=== PATIENT | female | born 1965 | race Hispanic/Latino ===

== ENCOUNTER 2021-09-03 13:42 | Inpatient (IN) | payer BC, OTHER ==
[2021-09-03] VITALS (10 sets, daily range): BP systolic 88–125; BP diastolic 57–82
[~2021-09-03] VITALS: Ht 165.1 cm; Wt 100.2 kg
[~2021-09-03 13:42] MED LIST: LISI5TAB21 PO; METF-446 PO
[2021-09-03 14:17] LABS: BASOPHILS % (AUTO) 0.3 % (0.0-5.0); EOSINOPHILS % (AUTO) 0.6 % (0.0-8.0); HEMATOCRIT 33.9 % (36-48); LYMPHOCYTES % (AUTO) 12.5 % (21.0-51.0); MEAN CORPUSCULAR HEMOGLOBIN 29.7 pg (27.0-33.0); MEAN CORPUSCULAR HGB CONC 33.6 g/dL (32.0-36.0); MEAN CORPUSCULAR VOLUME 88.3 fL (79-99); PLATELET COUNT (AUTO) 287 K/uL (130-400); RED BLOOD CELL COUNT(AUTO) 3.84 MIL/uL (4.00-5.50); RED CELL DISTRIBUTION WIDTH 13.2 % (11.0-15.5); WHITE BLOOD COUNT (AUTO) 15.8 K/uL (4.8-10.8)
[2021-09-03 14:24] LABS: APPEARANCE,URINE TURBID (CLEAR); BILIRUBIN,URINE NEGATIVE (NEGATIVE); COLOR,URINE YELLOW (YELLOW); GLUCOSE, URINE (UA) NEGATIVE (NEGATIVE); KETONES,URINE NEGATIVE (NEGATIVE); LEUKOCYTE ESTERASE ,URINE LARGE (NEGATIVE); NITRATE,URINE NEGATIVE (NEGATIVE); OCCULT BLOOD,URINE MODERATE (NEGATIVE); PH,URINE 6.5 (5.0-8.0); PROTEIN,URINE 30 mg/dL (NEGATIVE); UROBILINOGEN,URINE 0.2 mg/dL (0.2-1.0)
[2021-09-03 14:27] LABS: CREATININE 2.1 mg/dL (0.5-1.5)
[2021-09-03 14:32] LABS: ALBUMIN 2.9 g/dL (3.5-5.0); BILIRUBIN,TOTAL 0.4 mg/dL (0.2-1.0)
[2021-09-03 14:34] LABS: BACTERIA,URINE Few /HPF (None Seen); SQUAMOUS EPITHELIAL CELL,UR Rare /HPF (0-2); WBC,URINE 51-100 /HPF (0-1)
[2021-09-03 14:35] LABS: TRANSITIONAL EPI CELLS,URINE Rare /HPF (None Seen)
[2021-09-03] MEDS ORDERED: ONDANSETRON 4MG INJ ONE ×2 (14:38→21:12)
[2021-09-03] MEDS ORDERED: ACETAMINOPHEN 325 MG TAB ONE (14:38)
[2021-09-03] MEDS ORDERED: 0.9%NACL 1000ML 2,000 ML IV ONE ×2 (14:38→15:00)
[2021-09-03] MEDS ORDERED: KETOROLAC 30MG VIAL (30MG/ML) ONE (14:38)
[2021-09-03] MEDS ORDERED: ACETAMINOPHEN 325 MG TAB PO ONE (15:00)
[2021-09-03] MEDS ORDERED: KETOROLAC 30MG VIAL (30MG/ML) IVP ONE (15:00)
[2021-09-03] MEDS ORDERED: ONDANSETRON 4MG INJ IVP ONE (15:00)
[2021-09-03] MEDS ORDERED: CEFTRIAXONE 2GM VIAL IVP ONE (15:30)
[2021-09-03] MEDS ORDERED: HYDRALAZINE 20MG/ML VIAL IV PRN (19:00)
[2021-09-03] MEDS ORDERED: LACTULOSE 20 GM/30 ML UDCUP PO PRN (19:00)
[2021-09-03] MEDS ORDERED: ONDANSETRON 4MG INJ IV PRN (19:00)
[2021-09-03] MEDS ORDERED: ACETAMINOPHEN 325 MG TAB PO PRN (19:00)
[2021-09-03 19:02] LABS: MAGNESIUM 1.7 mg/dL (1.80-2.40); PHOSPHORUS 2.6 mg/dL (2.5-4.9)
[2021-09-03] MEDS: 0.9%NACL 1000ML 1,000 ML IV SCH (19:05)
[2021-09-03] MEDS ORDERED: RENAL DOSE IV SCH (19:30)
[2021-09-03] MEDS ORDERED: MIDAZOLAM HCL 1 MG/ML 2ML VIAL ONE (21:11)
[2021-09-03] MEDS ORDERED: DEXAMETHASONE SOD PHOSPHATE 10MG/ML 1ML VIAL ONE (21:11)
[2021-09-03] MEDS ORDERED: SUCCINYLCHOLINE 200MG/10ML SYR ONE (21:11)
[2021-09-03] MEDS ORDERED: LIDOCAINE PF 100MG/5ML (2%) SYRINGE 5ML ONE (21:11)
[2021-09-03] MEDS ORDERED: PROPOFOL 10 MG/ML 20ML VIAL IV ONE ×2 (21:12→22:18)
[2021-09-03] MEDS ORDERED: GLYCOPYRROLATE 1 MG/5 ML SYRINGE ONE (21:12)
[2021-09-03] MEDS ORDERED: NEOSTIGMINE 5MG/5ML SYR IV ONE (21:12)
[2021-09-03] MEDS ORDERED: ROCURONIUM 10MG/1ML SYR 10 MG/ML ML ONE (21:12)
[2021-09-03] MEDS ORDERED: FENTANYL CITRATE PF 50 MCG/1 ML 2ML VIAL ONE ×2 (21:13→22:31)
[2021-09-03] MEDS: ZOSYN 3.375GM+NS 50ML 50 ML IV SCH (21:18)
[2021-09-03] MEDS ORDERED: IOHEXOL-350 50ML VIAL IV ONE (21:54)
[2021-09-04] VITALS (12 sets, daily range): BP systolic 113–138; BP diastolic 66–88
[2021-09-04] MEDS: 0.9%NACL 1000ML 1,000 ML IV SCH (05:00)
[2021-09-04 05:24] LABS: BASOPHILS % (AUTO) 0.1 % (0.0-5.0); HEMATOCRIT 34.1 % (36-48); LYMPHOCYTES % (AUTO) 7.5 % (21.0-51.0); MEAN CORPUSCULAR HEMOGLOBIN 28.2 pg (27.0-33.0); MEAN CORPUSCULAR HGB CONC 31.1 g/dL (32.0-36.0); MEAN CORPUSCULAR VOLUME 90.7 fL (79-99); MONOCYTES % (AUTO) 2.4 % (3.0-13.0); NEUTROPHILS % (AUTO) 89.2 % (40.0-77.0); PLATELET COUNT (AUTO) 296 K/uL (130-400); RED BLOOD CELL COUNT(AUTO) 3.76 MIL/uL (4.00-5.50); RED CELL DISTRIBUTION WIDTH 13.2 % (11.0-15.5); WHITE BLOOD COUNT (AUTO) 15.5 K/uL (4.8-10.8)
[2021-09-04 05:55] LABS: % IRON SATURATION 8.5 % (22-44)
[2021-09-04 06:01] LABS: HEMOGLOBIN A1C 7.5 % (4.0-6.0)
[2021-09-04 06:13] LABS: CARBON DIOXIDE 23 mmol/L (21-32); CHLORIDE 106 mmol/L (101-111); CREATININE 1.8 mg/dL (0.5-1.5); GLOMERULAR FILTR. RATE CALC 31 mL/min (>60); GLUCOSE,RANDOM 251 mg/dL (70-105); POTASSIUM 4.7 mmol/L (3.5-5.1); SODIUM SERUM 139 mmol/L (136-145); THYROID STIMULATING HORMONE 0.89 uIU/mL (0.36-3.74); UREA NITROGEN, BLOOD 22 mg/dL (7-18)
[2021-09-04] MEDS: FAMOTIDINE 20MG VIAL IV SCH (09:21)
[2021-09-04] MEDS: ACETAMINOPHEN 325 MG TAB PO PRN ×2 (09:22→22:57)
[2021-09-04] MEDS: ZOSYN 3.375GM+NS 50ML 50 ML IV SCH ×2 (09:22→21:08)
[2021-09-04] MEDS: INSULIN HUMULIN R 100 UNIT/ML 3ML SQ SCH ×4 (12:50→17:06)
[2021-09-04] MEDS ORDERED: INSULIN HUMULIN R 100 UNIT/ML 3ML SQ SCH ×2 (16:30→17:00)
[2021-09-05] VITALS: BP 131/72
[2021-09-05] MEDS: INSULIN HUMULIN R 100 UNIT/ML 3ML SQ SCH ×5 (00:17→12:53)
[2021-09-05 04:00] VITALS: BP 123/73
[2021-09-05 04:45] LABS: HEMATOCRIT 32.3 % (36-48); MEAN CORPUSCULAR HGB CONC 33.1 g/dL (32.0-36.0); MEAN CORPUSCULAR VOLUME 87.5 fL (79-99); RED BLOOD CELL COUNT(AUTO) 3.69 MIL/uL (4.00-5.50); RED CELL DISTRIBUTION WIDTH 13.1 % (11.0-15.5); WHITE BLOOD COUNT (AUTO) 17.8 K/uL (4.8-10.8)
[2021-09-05 04:53] LABS: CREATININE 1.6 mg/dL (0.5-1.5); POTASSIUM 4.2 mmol/L (3.5-5.1)
[2021-09-05 07:22] VITALS: BP 128/69
[2021-09-05] MEDS ORDERED: LEVO750T46 PO (08:31)
[2021-09-05] MEDS: ZOSYN 3.375GM+NS 50ML 50 ML IV SCH (08:54)
[2021-09-05] MEDS: FAMOTIDINE 20MG VIAL IV SCH (08:54)
[2021-09-05 11:26] VITALS: BP 145/88
== END 2021-09-05 15:05 | disposition home or self-care (01) | DRG 854 ==
LOC: EDH 13:42 → EDHIP 13:43 → 3AH 23:34
PROVIDERS: ADMIT Hospitalist; ATTEND Hospitalist
PROC: 0T788DZ Dilation of Bilateral Ureters with Intraluminal Device, Via Natural or Artificial Opening Endoscopic (ICD-10-PCS; principal; 2021-09-03 22:00)
PROC: BT141ZZ Fluoroscopy of Kidneys, Ureters and Bladder using Low Osmolar Contrast (ICD-10-PCS; 2021-09-03 22:00)
DX: A41.9 Sepsis, unspecified organism (principal); N13.6 Pyonephrosis; N17.9 Acute kidney failure, unspecified; Z20.822 Contact with and (suspected) exposure to COVID-19; Z90.710 Acquired absence of both cervix and uterus; Z90.49 Acquired absence of other specified parts of digestive tract; Z87.442 Personal history of urinary calculi; Z68.36 Body mass index [BMI] 36.0-36.9, adult; E66.9 Obesity, unspecified; E11.9 Type 2 diabetes mellitus without complications
CPT/HCPCS: 36415; 74176; 74420; 80048; 80053; 81001; 82550; 82570; 82607; 82728; 82746; 82948; 83036; 83540; 83550; 83605; 83735; 84100; 84145; 84156; 84300; 84443; 84484; 85025; 85027; 85045; 87040; 87088; 87635; G0378; J0330; J0696; J1100; J1815; J1885; J2001; J2250; J2405; J2543; J2704; J2710; J3010; J3490; J7030; Q9967

== ENCOUNTER 2021-09-07 17:33 | Emergency (ER) | payer OTHER ==
[~2021-09-07] VITALS: Ht 165.1 cm; Wt 99.8 kg
[~2021-09-07 17:33] MED LIST changes: +LEVO750T46 PO
[2021-09-07] MEDS ORDERED: ACETAMINOPHEN 500 MG TABLET PO ONE (19:00)
[2021-09-07] MEDS ORDERED: PHENAZOPYRIDINE HCL 200 MG TABLET PO ONE (19:00)
[2021-09-07 19:11] LABS: APPEARANCE,URINE Turbid (CLEAR); BILIRUBIN,URINE Negative (NEGATIVE); COLOR,URINE Yellow (YELLOW); GLUCOSE, URINE (UA) Negative (NEGATIVE); KETONES,URINE Negative (NEGATIVE); LEUKOCYTE ESTERASE ,URINE Large (NEGATIVE); NITRATE,URINE Negative (NEGATIVE); OCCULT BLOOD,URINE Large (NEGATIVE); PROTEIN,URINE 300 mg/dL (NEGATIVE); UROBILINOGEN,URINE 0.2 mg/dL (0.2-1.0)
[2021-09-07 19:22] LABS: BACTERIA,URINE Few /HPF (None Seen); RBC,URINE None Seen /HPF (0-1); WBC,URINE >100 /HPF (0-1)
[2021-09-07] MEDS ORDERED: CEFTRIAXONE 1G VIAL IM ONE (19:30)
[2021-09-07] MEDS ORDERED: CEPH500B PO (20:14)
[2021-09-07] MEDS ORDERED: PHEN-847 PO (20:14)
[2021-09-07 20:40] VITALS: BP 136/86
== END 2021-09-07 21:27 | disposition home or self-care (01) ==
LOC: EDH 17:33
DX: N39.0 Urinary tract infection, site not specified (principal); R32 Unspecified urinary incontinence; G89.18 Other acute postprocedural pain; E11.9 Type 2 diabetes mellitus without complications; I10 Essential (primary) hypertension; Z79.899 Other long term (current) drug therapy; Z87.442 Personal history of urinary calculi; Z79.84 Long term (current) use of oral hypoglycemic drugs; Z90.49 Acquired absence of other specified parts of digestive tract
CPT/HCPCS: 81001; 87088; 96372; 99283; J0696